=== PATIENT | male | born 1995 | race Caucasian/White ===

== ENCOUNTER 2023-06-27 04:12 | Emergency (ER) | payer SELFPAY ==
[2023-06-27] MEDS ORDERED: Lorazepam 2 MG/ML VIAL ONE (04:54)
[2023-06-27] MEDS ORDERED: Aspirin 325 MG TAB ONE (04:54)
[2023-06-27] MEDS ORDERED: Lactated Ringer's 1,000 ML ONE (04:54)
[2023-06-27 05:09] LABS: #Basophils 0.1 thou/uL (0.0-0.2); #Eosinphils 0.1 thou/uL (0.0-0.7); #Lymphocytes 1.5 thou/uL (1.20-3.40); #Monocytes 0.3 thou/uL (0.11-0.59); #Neutrophils 5.8 thou/uL (1.40-6.50); %Eosinophils 1.8 % (0.0-10.0); %Lymphocytes 18.7 % (21.0-51.0); %Monocytes 4.2 % (0.0-10.0); %Neutrophils 74.3 % (42.0-75.0); Hemoglobin 13.3 g/dL (14.0-18.0); Mean Corpuscular HGB CONC 35.8 g/dL (32.0-36.0); Mean Corpuscular Hemoglobin 31.9 pg (27.0-31.0); Mean Corpuscular Volume 89.2 fl (78.0-98.0); Mean Platelet Volume 7.7 fL (7.4-10.4); Platelet Count 251 10x3/uL (130-400); RBC Distribution Width 10.6 % (11.5-14.5); Red Blood Cell (RBC) Count 4.15 mill/uL (4.70-6.10); White Blood Cell (WBC) Count 7.8 10x3/uL (4.8-10.8)
[2023-06-27 05:17] LABS: ALT (SGPT) 9 U/L (8-55); AST (SGOT) 15 U/L (5-34); Albumin 4.4 g/dL (3.5-5.0); Alkaline Phosphatase 42 U/L (40-110); Anion Gap 15 mmol/L (10-20); BUN (Urea Nitrogen) 8 mg/dL (8.9-20.6); Bilirubin, Total 0.4 mg/dL (0.2-1.2); Calc. Creatinine Clearance 0 mL/min (70-130); Carbon Dioxide 25 mmol/L (22-29); Chloride 102 mmol/L (98-107); Estimated GFR 118; Globulin 2.7 g/dL (2.4-3.5); Glucose 142 mg/dL (70-105); Protein, Total 7.1 g/dL (6.0-8.3); Sodium 139 mmol/L (136-145)
[2023-06-27 05:18] LABS: Magnesium 2.1 mg/dL (1.6-2.6)
[2023-06-27 05:23] LABS: Troponin I Less than 0.010 ng/mL (< 0.028)
[2023-06-27] MEDS ORDERED: Potassium Chloride 20 MEQ TAB ONE (05:38)
[2023-06-27 06:13] LABS: Amphetamine Detected (NotDetected); Barbiturates Screen Not Detected (NotDetected); Benzodiazepine Screen Not Detected (NotDetected); Cocaine Metabolite Screen Detected (NotDetected); Methadone Not Detected (NotDetected); Methamphetamine Detected (NotDetected); Opiate Screen Not Detected (NotDetected); Oxycodone Screen Not Detected (NotDetected); Phencyclidine (PCP) Not Detected (NotDetected); THC/Cannabinoid Screen Detected (NotDetected); Tricyclic Screen Not Detected (NotDetected)
[2023-06-27 08:12] LABS: Troponin I Less than 0.010 ng/mL (< 0.028)
== END 2023-06-27 08:44 | disposition home or self-care (01) ==
LOC: MADERS 04:12
DX: F14.129 Cocaine abuse with intoxication, unspecified (principal); E87.6 Hypokalemia; F17.210 Nicotine dependence, cigarettes, uncomplicated
CPT/HCPCS: 71045; 80053; 80306; 83735; 84443; 84484; 85025; 93005; 94760; 96361; 96374; J2060; J7120

== ENCOUNTER 2023-06-29 05:42 | Emergency (ER) | payer SELFPAY ==
[2023-06-29] MEDS ORDERED: Ondansetron PF 4 MG/2 ML Vial ONE (06:16)
[2023-06-29] MEDS ORDERED: Ketorolac Tromethamine 30 MG/ML VIAL ONE (06:16)
[2023-06-29 06:42] LABS: ALT (SGPT) 11 U/L (8-55); AST (SGOT) 16 U/L (5-34); Albumin 4.5 g/dL (3.5-5.0); Alkaline Phosphatase 41 U/L (40-110); Anion Gap 15 mmol/L (10-20); BUN (Urea Nitrogen) 7 mg/dL (8.9-20.6); Bilirubin, Total 0.3 mg/dL (0.2-1.2); CK (CPK) 90 U/L (30-200); Calc. Creatinine Clearance 0 mL/min (70-130); Calcium 9.2 mg/dL (7.8-10.44); Carbon Dioxide 25 mmol/L (22-29); Chloride 106 mmol/L (98-107); Estimated GFR 123; Globulin 2.8 g/dL (2.4-3.5); Glucose 99 mg/dL (70-105); Potassium 3.8 mmol/L (3.5-5.1); Protein, Total 7.3 g/dL (6.0-8.3); Sodium 142 mmol/L (136-145)
[2023-06-29] MEDS ORDERED: Lactated Ringer's 1,000 ML BAG ONE (07:25)
== END 2023-06-29 07:35 | disposition home or self-care (01) ==
LOC: MADERS 05:42
DX: R53.83 Other fatigue (principal); F17.210 Nicotine dependence, cigarettes, uncomplicated; Z20.822 Contact with and (suspected) exposure to COVID-19
CPT/HCPCS: 80053; 82550; 87635; 94760; 96361; 96374; 96375; J1885; J2405; J7120

== ENCOUNTER 2023-07-09 01:56 | Emergency (ER) | payer OTHER, SELFPAY ==
[2023-07-09] MEDS ORDERED: Ibuprofen 800 MG TAB ONE (02:11)
[2023-07-09] MEDS ORDERED: Ondansetron ODT 4 MG TAB ONE ×2 (02:11)
[2023-07-09] MEDS ORDERED: Acetaminophen 500 MG TAB ONE (02:11)
== END 2023-07-09 02:26 | disposition home or self-care (01) ==
LOC: MADERS 01:56
DX: L55.0 Sunburn of first degree (principal); F17.210 Nicotine dependence, cigarettes, uncomplicated; Y93.89 Activity, other specified; Y92.61 Building [any] under construction as the place of occurrence of the external cause
CPT/HCPCS: 93005; Q0162